=== PATIENT | female | born 1995 | race Caucasian/White ===

== ENCOUNTER 2024-11-05 00:46 | Emergency (ER) | payer BC, MEDICAID ==
[~2024-11-05] VITALS: Ht 160 cm; Wt 71.5 kg
[2024-11-05 01:01] VITALS: BP 124/75; PULSE 67; RESP 16; O2SAT 99
[2024-11-05 01:25] LABS: Basophils # (auto) 0.1 10 ^3/uL (0-0.2); Eosinophils # (auto) 0.3 10 ^3/uL (0-0.8); Eosinophils % (auto) 3.1 % (0.0-7.0); Hematocrit 37.1 % (36.0-46.0); Lymphocytes # (auto) 2.6 10 ^3/uL (0.4-5.4); Lymphocytes % (auto) 29.7 % (10.0-50.0); Mean Corpuscular Hemoglobin 27.5 pg (28.0-32.0); Mean Corpuscular Hgb Conc. 32.3 g/dL (32.0-36.0); Mean Corpuscular Volume 85.3 fL (80.0-100.0); Monocytes # (auto) 0.5 10 ^3/uL (0-1.3); Monocytes % (auto) 5.3 % (0.0-12.0); Neutrophils # (auto) 5.4 10 ^3/uL (1.6-8.6); Neutrophils % (auto) 60.9 % (37.0-80.0); Nucleated Red Blood Cells % 0.1 %; Platelet Count (auto) 280 10^3/uL (140-450); Red Blood Cells 4.35 10^6/uL (4.0-5.20); Red Cell Distribution Width 13.9 % (11.8-14.3); White Blood Cell 8.9 10^3/uL (4.4-10.8)
[2024-11-05 01:33] LABS: Urine Bacteria None Seen /hpf (None Seen)
[2024-11-05 01:34] LABS: Chloride 107 mmol/L (98-107); Potassium 3.7 mmol/L (3.5-5.1); Sodium 144 mmol/L (136-145)
[2024-11-05 01:35] LABS: Anion Gap 11 (5-15); Carbon Dioxide 26 mmol/L (20-31)
[2024-11-05 01:36] LABS: Calcium 10.1 mg/dL (8.7-10.4)
[2024-11-05 01:40] LABS: Glucose 90 mg/dL (74-106)
[2024-11-05 01:42] LABS: Urine Blood 1+ /uL (Negative); Urine Clarity Turbid (Clear); Urine Color Dark-Yellow (Yellow); Urine Mucus FEW (None Seen); Urine Protein, UAD 1+ (Negative); Urine Specific Gravity 1.028 (1.001-1.035); Urine Urobilinogen 3 mg/dL (Negative); Urine WBC 180 /hpf (0 - 5)
[2024-11-05] MEDS ORDERED: CIPR-173 PO (02:06)
[2024-11-05 02:07] LABS: BUN/Creatinine Ratio 10.8 (10.0-20.0)
--- NOTE | 2024-11-05 02:07 | ED.PDOC ---
General HPI Comments 29-year-old female complaining of burning with urination and back pain. Patient states the symptoms started 10 days ago. Thought it would improve but has not. States she has been having intermittent chills. No fever. No nausea no vomiting no diarrhea. Nothing makes it better, nothing makes it worse. Chief Complaint: Urinary Time Seen by MD: 00:58 Reviewed notes: Nurses Notes Allergies: Coded Allergies: NO KNOWN ALLERGIES (Unverified , 11/05/24) Information Source: Patient Mode of Arrival: Ambulatory Severity: Moderate Past Medical History PAST MEDICAL HISTORY: Denies Surgical History: Denies all surgeries [employer] History: No Pertinent [employer] History Constitutional: denies: chills, diaphoresis, fatigue, fever, malaise, sweats, weakness, others EENTM: denies: blurred vision, double vision, ear bleeding, ear discharge, ear drainage, ear pain, ear ringing, eye pain, eye redness, hearing loss, mouth pain, mouth swelling, nasal discharge, nose bleeding, nose congestion, nose pain, photophobia, tearing, throat pain, throat swelling, voice changes, others Respiratory: denies: cough, hemoptysis, orthopnea, SOB at rest, shortness of breath, SOB with excertion, stridor, wheezing, others Cardiovascular: denies: chest pain, dizzy spells, diaphoresis, Dyspnea on exertion, edema, irregular heart beat, left arm pain, lightheadedness, palpitations, PND, syncope, others Gastrointestinal: denies: abdomen distended, abdominal pain, blood streaked bowels, constipated, diarrhea, dysphagia, difficulty swallowing, hematemesis, melena, nausea, poor appetite, poor fluid intake, rectal bleeding, rectal pain, vomiting, others Genitourinary: reports: dysuria; denies: abnormal vagina bleeding, burning, dyspareunia, flank pain, frequency, hematuria, incontinence, pain, , vagina discharge, urgency, others Neurological: denies: dizziness, fainting, headache, left sided numbness, left sided weakness, numbness, paresthesia, pre-existing deficit, right sided numbness, right sided weakness, seizure, speech problems, tingling, tremors, weakness, others Musculoskeletal: reports: back pain; denies: gout, joint pain, joint swelling, muscle pain, muscle stiffness, neck pain, others Integumetry: denies: bruises, change in color, change in hair/nails, dryness, laceration, lesions, lumps, rash, wounds, others Allergic/Immunocompromised: denies: Difficulty Healing, Frequent Infections, Hives, Itching, others Hematologic/Lymphatic: denies: anemia, blood clots, easy bleeding, easy bruis ing, swollen glands, others Physical Exam General Appearance: No Apparent Distress, Normal HEENT: Normal ENT Inspection, Pharynx Normal, TMs Normal Neck: Full Range of Motion, Non-Tender, Normal, Normal Inspection Respiratory: Chest Non-Tender, Lungs Clear, No Accessory Muscle Use, No Respiratory Distress, Normal Breath Sounds Cardiovascular: No Edema, No JVD, No Murmur, No Gallop, Normal Peripheral Pulses, Regular Rate/Rhythm Breast Exam: Deferred Gastrointestinal: No Organomegaly, Non Tender, No Pulsatile Mass, Normal Bowel Sounds, Soft Genitalia: Deferred Pelvic: Deferred Rectal: Deferred Extremities: No calf tenderness, Normal capillary refill, Normal inspection, Normal range of motion, Non-tender, No pedal edema Musculoskeletal : Location: Bilateral Extremity Location: Back (Mild CVA tenderness bilaterally) Apperance: Normal Neurologic: Alert, molecular technologist II-XII nml as Tested, No Motor Deficits, Normal Affect, Normal Mood, No Sensory Deficits Cerebellar Function: Normal Reflexes: Normal Skin: Dry, Normal Color, Warm Lymphatic: No Adenopathy Was a procedure done? Was a procedure done?: No Differential Diagnosis Kidney stone (Female): N/A Urinary Problem (Female): Pyelonephritis, Urinary retention, UTI X-Ray, Labs, Meds, VS Vital Signs Date Time Temp Pulse Resp B/P (MAP) Pulse Ox O2 Delivery O2 Flow Rate FiO2 11/05/24 01:01 97.8 67 16 124/75 (91) 99 Lab Test 11/05/24 01:05 11/05/24 01:00 Range/Units White Blood Count 8.9 4.4-10.8 10^3/uL Red Blood Count 4.35 4.0-5.20 10^6/uL Hemoglobin 12.0 L 12.2-16.2 g/dL Hematocrit 37.1 36.0-46.0 % Mean Corpuscular Volume 85.3 80.0-100.0 fL Mean Corpuscular Hemoglobin 27.5 L 28.0-32.0 pg Mean Corpuscular Hemoglobin Concent 32.3 32.0-36.0 g/dL Red Cell Distribution Width 13.9 11.8-14.3 % Platelet Count 280 140-450 10^3/uL Mean Platelet Volume 8.7 6.9-10.8 fL Neutrophils (%) (Auto) 60.9 37.0-80.0 % Lymphocytes (%) (Auto) 29.7 10.0-50.0 % Monocytes (%) (Auto) 5.3 0.0-12.0 % Eosinophils (%) (Auto) 3.1 0.0-7.0 % Basophils (%) (Auto) 1.0 0.0-2.0 % Neutrophils # (Auto) 5.4 1.6-8.6 10 ^3/uL Lymphocytes # (Auto) 2.6 0.4-5.4 10 ^3/uL Monocytes # (Auto) 0.5 0-1.3 10 ^3/uL Eosinophils # (Auto) 0.3 0-0.8 10 ^3/uL Basophils # (Auto) 0.1 0-0.2 10 ^3/uL Nucleated Red Blood Cells 0.1 % Sodium Level 144 136-145 mmol/L Potassium Level 3.7 3.5-5.1 mmol/L Chloride Level 107 98-107 mmol/L Carbon Dioxide Level 26 20-31 mmol/L Anion Gap 11 5-15 Blood Urea Nitrogen Pending Creatinine 0.74 0.550-1.02 mg/dL Glomerular Filtration Rate Calc 114 >90 mL/min BUN/Creatinine Ratio Pending Serum Glucose 90 74-106 mg/dL Calcium Level 10.1 8.7-10.4 mg/dL Urine Color Dark-yellow Yellow Urine Clarity Turbid H Clear Urine pH 6.0 5.0-9.0 Urine Specific [place] 1.028 1.001-1.035 Urine Protein 1+ H Negative Urine Ketones 1+ H Negative Urine Blood 1+ H Negative /uL Urine Nitrite 1+ H Negative Urine Bilirubin 1+ H Negative Urine Urobilinogen 3 H Negative mg/dL Urine Leukocyte Esterase 2+ Negative /uL Urine RBC 50 0 - 4 /hpf Urine WBC 180 0 - 5 /hpf Urine Squamous Epithelial Cells Mod <5 /hpf Urine Bacteria None seen None Seen /hpf Urine Mucus Few None Seen Urine Glucose Normal Normal mg/dL X-Ray, Labs, Meds, VS Comment Imaging: X-rays and CT scans were reviewed and interpreted by this provider, imaging shows no fractures and no pathological disease. Pending radiology review. Laboratory: Labs reviewed and interpreted by this provider. Patient was urinalysis shows positive nitrites positive leukocytes positive blood. With CVA tenderness, was concerned for possible pyelonephritis. Patient healthy. Patient will be given Rocephin 1 g and Cipro 500 b.i.d. x7 days. Advised to follow up in 24 hours if symptoms worsened. Patient has prior medical visits reviewed. Med reconciliation performed Vital signs reviewed Time of 1ST Reevaluation: 02:07 Reevaluation 1ST: Improved Patient Education/Counseling: Diagnosis, Treatment, Need For Follow Up (Follow up in 24 hours if symptoms worsen.) Family Education/Counseling: Diagnosis, Treatment Departure 1 Departure Time of Disposition: 02:05 Impression: Primary Impression: Pyelonephritis Disposition: 01 HOME / SELF CARE / HOMELESS Condition: Fair e-Prescriptions Ciprofloxacin Hcl (Cipro) 500 Mg Tab 1 TAB PO BID for 7 Days, #14 TAB Prov: NEHAL DAILEY 11/05/24 Discharged With: Self Critical Care Note Critical Care Time?: No Stability Stability form required: No Heart Score Heart Score: Heart Score Response (Comments) Value History N/A 0 EKG N/A 0 Age N/A 0 Risk Factors N/A 0 Troponin N/A 0 Total 0 NEHAL DAILEY Nov 05, 2024 02:07
[2024-11-05 02:10] LABS: Blood Urea Nitrogen 8 mg/dL (9-23)
[2024-11-05] MEDS: cefTRIAXone SOD 1,000 MG VL IM ONE (02:20)
== END 2024-11-05 02:29 | disposition home or self-care (01) ==
LOC: ER 00:46
DX: N12 Tubulo-interstitial nephritis, not specified as acute or chronic (principal)
CPT/HCPCS: 36415; 80048; 81001; 85025; 96372; 99283; J0696